=== PATIENT | male | born 1980 | race African-American/Black ===

== ENCOUNTER 2019-01-31 11:59 | Outpatient (CLI) | payer OTHER | END 2019-01-31 19:53 | disposition home or self-care (01) | LOC: RAD 11:59 | DX: M25.561 Pain in right knee (principal) ==

== ENCOUNTER 2022-09-04 08:58 | Outpatient (CLI) | payer OTHER | END 2022-09-04 19:23 | disposition home or self-care (01) | LOC: MRI 08:58 | PROVIDERS: ATTEND Nurse Practitioner | DX: M25.562 Pain in left knee (principal) ==